=== PATIENT | female | born 1970 | race Caucasian/White ===

== ENCOUNTER 2017-04-09 16:07 | Outpatient (CLI) | payer BC | END 2017-04-09 16:08 | disposition home or self-care (01) | LOC: BICMAMMO 16:07 | PROVIDERS: ATTEND Family Medicine | DX: Z12.31 Encounter for screening mammogram for malignant neoplasm of breast (principal) | CPT/HCPCS: 77063; 77067 ==

== ENCOUNTER 2017-07-21 12:15 | Outpatient (CLI) | payer BC | END 2017-07-21 12:16 | disposition home or self-care (01) | LOC: BICRAD 12:15 | PROVIDERS: ATTEND Internal Medicine Rheumatology | DX: M45.0 Ankylosing spondylitis of multiple sites in spine (principal) | CPT/HCPCS: 71046 ==

== ENCOUNTER 2018-04-28 16:02 | Outpatient (CLI) | payer BC | END 2018-04-28 16:03 | disposition home or self-care (01) | LOC: BICMAMMO 16:02 | PROVIDERS: ATTEND Family Medicine | DX: Z12.31 Encounter for screening mammogram for malignant neoplasm of breast (principal); Z98.890 Other specified postprocedural states | CPT/HCPCS: 77063; 77067 ==

== ENCOUNTER 2018-04-28 16:21 | Outpatient (CLI) | payer BC ==
--- NOTE | 2018-04-28 17:21 | RAD ---
CHEST TWO VIEWS: HISTORY: Ankylosing spondylitis. COMPARISON: 01/08/2004 FINDINGS: The cardiac silhouette and pulmonary vasculature are unremarkable. The mediastinum is midline. No c onfluent air space consolidation, pneumothorax, or pleural fluid is apparent. No significant interst itial disease. IMPRESSION: No active cardiopulmonary abnormalities are demonstrated. POS: [facility]
== END 2018-04-28 16:22 | disposition home or self-care (01) ==
LOC: BICRAD 16:21
PROVIDERS: ATTEND Internal Medicine Rheumatology
DX: M45.0 Ankylosing spondylitis of multiple sites in spine (principal)
CPT/HCPCS: 71046

== ENCOUNTER 2018-07-08 10:21 | Outpatient (CLI) | payer BC ==
--- NOTE | 2018-07-08 11:13 | RAD ---
2 VIEWS THORACIC SPINE: Date: 07/08/18 HISTORY: Myelopathy, radiculopathy. FINDINGS: AP and lateral views of thoracic spine obtained. 2 views of thoracic spine demonstrate no evidence of thoracic spine fractures, subluxations, or bony lesions. IMPRESSION: Normal 2 views thoracic spine. POS: [facility]
--- NOTE | 2018-07-08 11:46 | RAD ---
FIVE VIEWS CERVICAL SPINE INCLUDING AP AND LATERAL AND FLEXION AND EXTENSION AND OPEN MOUTH ODONTOID VIEWS CERVICAL SPINE: HISTORY: Spondylosis cervical region. FINDINGS: Five views cervical spine demonstrate slight loss of the normal lordotic curvature of the cervical sp ine. There is minimal retrolisthesis of C5 on C6 with broad-based posterior osteophyte seen at this level. Subtle anterior osteophyte seen anterior to the C4 and C5 levels. There is some disk space h eight loss seen at the C5-6 level. No other acute fractures or bony lesions seen. No significant ev idence of prevertebral soft tissue swelling seen. POS: [facility]
--- NOTE | 2018-07-08 11:47 | RAD ---
FOUR VIEWS LUMBAR SPINE: HISTORY: Spondylosis of the lumbar region. FINDINGS: AP, lateral, flexion, and extension lateral views lumbar spine obtained. Images demonstrate mild S-shaped lumbar scoliosis. There is disk space height loss with vacuum disk changes seen at the L5-S1 level. Small anterior and posterior osteophytes also seen at this level. No evidence of maricruz- or retrolisthesis seen on flexion or extension views. POS: [facility]
== END 2018-07-08 10:22 | disposition home or self-care (01) ==
LOC: BICRAD 10:21
PROVIDERS: ATTEND Specialist
DX: M47.24 Other spondylosis with radiculopathy, thoracic region (principal); M47.22 Other spondylosis with radiculopathy, cervical region; M51.17 Intervertebral disc disorders with radiculopathy, lumbosacral region; M47.27 Other spondylosis with radiculopathy, lumbosacral region; G35 Multiple sclerosis; G50.0 Trigeminal neuralgia
CPT/HCPCS: 72050; 72070; 72110

== ENCOUNTER 2018-08-05 12:44 | Outpatient (CLI) | payer BC ==
[~2018-08-05 12:44] MED LIST: Gadobenate Dimeglumine 529 MG/1 ML (20ML VIAL) ONE
--- NOTE | 2018-08-05 17:03 | MRI ---
EXAM: BRAIN MRI WITH AND WITHOUT CONTRAST: 08/05/18 HISTORY: Trigeminal neuralgia, left side of face. COMPARISON: None. TECHNIQUE: Brain MRI is performed with and without intravenous gadolinium administration. Multisequential, multi planar imaging is performed. FINDINGS: No hemorrhage on the axial gradient echo sequence. No parenchymal mass, mass effect or midline shift. Brain volume, age appropriate. Cortical alaniz-white matter differentiation is preserved. No hydrocephalus. Central arterial flow voids are maintained. Absent restricted diffusion. Minimal T2 and FLAIR white matter hyperintensities predominantly subcortical and deep white matter in location. Distribution does not favor multiple sclerosis. Adequate aeration of the sinuses and mastoid air cells. Midline brain parenchymal structures are unremarkable. No pathologic enhancement of the brain parenchyma. IMPRESSION: 1. No pathologic enhancement of the brain parenchyma. 2. Absent restricted diffusion. No acute infarct. 3. No significant T2 or FLAIR white matter hyperintensities to suggest multiple sclerosis. If th ere is still concern, correlation with CSF acquisition for further analysis is recommended. POS: [facility]
--- NOTE | 2018-08-05 17:16 | MRI ---
MRI CERVICAL SPINE WITH AND WITHOUT CONTRAST: 08/05/18 HISTORY: Radiculopathy. Evaluate for multiple sclerosis. COMPARISON: None. FINDINGS: Appropriate T1 marrow signal intensity of the thoracic vertebrae. Thoracic spine vertebral body heigh t is maintained. No fracture. Intrinsic T1 and T2 hyperintensity at the left aspect of T1, compatible with a small area of fatty marrow. Visualized brain parenchyma, cervicomedullary junction, cervical cord, and the upper thoracic cord rossi ve a normal size and signal intensity. No cord malacia. No cord expansion. No T2 hyperintensities in the cord. No abnormal enhancement. C2-C3: No significant central canal stenosis or neural foraminal narrowing. C3-C4: No significant central canal stenosis. Mild right foraminal narrowing due to uncovertebral hyp ertrophy. Left foramen is patent. C4-C5: No significant central canal stenosis or foraminal narrowing. C5-C6: Broad based disc bulge abuts the thecal sac. There is a small left paracentral component. Mild central canal stenosis. Neural foramina patent. C6-C7: No significant central canal stenosis or foraminal narrowing. T7-T1: No significant central canal stenosis or foraminal narrowing. IMPRESSION: 1. No significant central canal stenosis or foraminal narrowing. Mild left foraminal narrowing a t C3-C4. There is a disc bulge at C5-C6 without significant stenosis. 2. Appropriate size and signal intensity of the spinal cord. No MR evidence of a demyelinating plaque in the visualized spinal cord. POS: [facility]
--- NOTE | 2018-08-05 17:21 | MRI ---
MRI THORACIC SPINE WITH AND WITHOUT CONTRAST: 08/05/18 HISTORY: Radiculopathy of the thoracic region. Multiple sclerosis. COMPARISON: None. FINDINGS: Appropriate T1 marrow signal intensity of the thoracic vertebrae. Thoracic spine vertebral body heigh t is maintained. No fracture. Small focus of fatty marrow is noted along the left aspect of the T1 ve rtebral body. No significant STIR hyperintensity to suggest vertebral body edema or ligamentous injur y. Dependent atelectatic changes in the lung parenchyma. The visualized mediastinum and solid organs are grossly unremarkable. At T4-T5, there is a generalized disc bulge that abuts the thecal sac and flattens the overall diamet er of the central spinal canal. There is mild flattening of the thoracic cord. Mild central canal keyshawn nosis. T7-T8 demonstrates small left and right paracentral disc bulges with mild central canal stenosis. Conus medullaris terminates at approximately the mid T12 level. The thoracic cord has a normal size and signal intensity. No cord expansion. No T2 hyperintensity of the cord. No abnormal enhancement. The neural foramina are patent throughout the thoracic spine. IMPRESSION: 1. Unremarkable pre and postcontrast thoracic spine MRI. The greatest degree of degenerative kari nges at T4-T5 where there is mild central canal stenosis. 2. Normal cord signal intensity of the visualized spinal cord. POS: [facility]
--- NOTE | 2018-08-05 17:27 | MRI ---
MRI LUMBAR SPINE WITH AND WITHOUT CONTRAST: 08/05/18 HISTORY: Intervertebral disc disorder with radiculopathy. Multiple sclerosis. COMPARISON: None. FINDINGS: Appropriate T1 marrow signal intensity of the lumbar vertebrae. Lumbar spine vertebral body height is maintained. No fracture. No significant STIR hyperintensity to suggest vertebral body edema or ligam entous injury. On the sagittal T2 weighted images, there is a T2 hyperintensity in the midline of the pelvis, incomp letely evaluated. Appropriate signal intensity of the paraspinal muscles and visualized solid organs. Conus medullaris terminates at the mid aspect of T12. On the postcontrast images, there is no abnormal enhancement with regards to the vertebral bodies, ca uda equine, or conus medullaris. T12-L1: No significant central canal stenosis or foraminal narrowing. L1-L2: No significant central canal stenosis or foraminal narrowing. L2-L3: No significant central canal stenosis or foraminal narrowing. L3-L4: No significant central canal stenosis or foraminal narrowing. L4-L5: Central disc protrusion. Mild central canal stenosis. Bilaterally, neural foramina are patent. L5-S1: Desiccation with severe loss of disc space height. There is a generalized disc bulge without significant central canal stenosis. Mild bilateral neural foraminal narrowing. IMPRESSION: 1. Degenerative changes of the lumbar spine as detailed above. No significant central canal sten osis or significant neural foraminal narrowing. 2. Consider further evaluation with a T2 hyperintensity probably in the left hemipelvis, incompl etely evaluated. Code T POS: [facility]
== END 2018-08-05 12:45 | disposition home or self-care (01) ==
LOC: MRI 12:44
PROVIDERS: ATTEND Specialist
DX: G35 Multiple sclerosis (principal); M51.17 Intervertebral disc disorders with radiculopathy, lumbosacral region; M54.14 Radiculopathy, thoracic region; G50.0 Trigeminal neuralgia; M47.816 Spondylosis without myelopathy or radiculopathy, lumbar region; M47.24 Other spondylosis with radiculopathy, thoracic region; M48.04 Spinal stenosis, thoracic region; M50.122 Cervical disc disorder at C5-C6 level with radiculopathy
CPT/HCPCS: 70553; 72156; 72157; 72158; A9577

== ENCOUNTER 2018-08-24 13:03 | Outpatient (CLI) | payer BC ==
--- NOTE | 2018-08-24 17:08 | MRI ---
MRI OF PELVIS WITH AND WITHOUT CONTRAST: 08/24/18 HISTORY: R19.00 - pelvic mass. COMPARISON: Lumbar spine MRI 08/05/18. FINDINGS: In the left adnexa, is a T2 hyperintense mass measuring up to 3 cm without any internal enhancement. Just craniad to this is a smaller T2 hyperintense nonenhancing mass measuring up to 1.2 cm. In the ri ght adnexa is a nonenhancing T2 hyperintense nonenhancing 1 cm mass. Trace free fluid in the pelvis. No dilated loops of large or small bowel in mid lower pelvis. Marrow signal of the pelvis is normal. The iliac vessel contour is normal. No marrow infiltrative process. Bilateral acetabular osteophyte formation. Moderate degenerative dise ase of the pubic symphysis. Prior hysterectomy. No hydronephrosis. There is an incompletely evaluated T2 hyperintense focus within the right lobe of the liver. Aortic contour is nonaneurysmal. Limited e valuation of the spleen is unremarkable. There is another T2 hyperintense focus within the right lobe of the liver, hepatic possibly segment I Vb. IMPRESSION: 1. Bilateral simple adnexal cyst without evidence of malignancy. 2. Incidental incompletely evaluated T2 hyperintense foci of the liver. There is a prior MRI of the abdomen of 2012 which described these findings. POS: [facility]
== END 2018-08-24 13:04 | disposition home or self-care (01) ==
LOC: SCSMRI 13:03
PROVIDERS: ATTEND Specialist
DX: R19.00 Intra-abdominal and pelvic swelling, mass and lump, unspecified site (principal); N83.8 Other noninflammatory disorders of ovary, fallopian tube and broad ligament
CPT/HCPCS: 72197

== ENCOUNTER 2019-04-29 15:47 | Outpatient (CLI) | payer BC ==
--- NOTE | 2019-04-29 16:18 | MMO ---
Bilateral MAMMO Bilat Screen [facility]. CLINICAL HISTORY: Patient is 48 years old and is seen for screening. The patient has no family history of breast cancer. The patient has no personal history of cancer. The patient has a history of right Cyst Aspiration in September, - benign and right Excisional Biopsy in September, - benign. VIEWS: The views performed were: bilateral craniocaudal with tomosynthesis and bilateral mediolateral oblique with tomosynthesis. FILMS COMPARED: The present examination has been compared to prior imaging studies performed at [facility] on 03/14/2015, 03/20/2016, 04/09/2017 and 04/28/2018. This study has been interpreted with the assistance of computer-aided detection. MAMMOGRAM FINDINGS: The breasts are heterogeneously dense, which could obscure a lesion on mammography. There is a biopsy clip seen in the right breast. There are no suspicious masses, suspicious calcifications, or new areas of architectural distortion. IMPRESSION: THERE IS NO MAMMOGRAPHIC EVIDENCE OF MALIGNANCY. A ROUTINE FOLLOW-UP MAMMOGRAM IN 1 YEAR IS RECOMMENDED. THE RESULTS OF THIS EXAM WERE SENT TO THE PATIENT. ACR BI-RADS Category 2 - Benign finding MAMMOGRAPHY NOTE: 1. A negative mammogram report should not delay a biopsy if a dominant of clinically suspicious mass is present. 2. Approximately 10% to 15% of breast cancers are not detected by mammography. 3. Adenosis and dense breasts may obscure an underlying neoplasm. Reported by: CARISSA PEARSON MD Electonically Signed: [id number]
== END 2019-04-29 15:48 | disposition home or self-care (01) ==
LOC: BICMAMMO 15:47
PROVIDERS: ATTEND Family Medicine
DX: Z12.31 Encounter for screening mammogram for malignant neoplasm of breast (principal); Z91.89 Other specified personal risk factors, not elsewhere classified
CPT/HCPCS: 77063; 77067

== ENCOUNTER 2020-06-19 15:20 | Outpatient (CLI) | payer BC | END 2020-06-19 15:21 | disposition home or self-care (01) | LOC: BICMAMMO 15:20 | PROVIDERS: ATTEND Family Medicine | DX: Z12.31 Encounter for screening mammogram for malignant neoplasm of breast (principal); Z91.89 Other specified personal risk factors, not elsewhere classified | CPT/HCPCS: 77063; 77067 ==

== ENCOUNTER 2023-09-30 14:01 | Outpatient (CLI) | payer BC | END 2023-09-30 14:02 | disposition home or self-care (01) | LOC: BICRAD 14:01 | PROVIDERS: ATTEND Internal Medicine Rheumatology | DX: M15.9 Polyosteoarthritis, unspecified (principal) | CPT/HCPCS: 73565 ==

== ENCOUNTER 2023-11-16 14:40 | Outpatient (CLI) | payer BC | END 2023-11-16 14:41 | disposition home or self-care (01) | LOC: BICMAMMO 14:40 | PROVIDERS: ATTEND Internal Medicine Rheumatology | DX: M81.0 Age-related osteoporosis without current pathological fracture (principal); M85.89 Other specified disorders of bone density and structure, multiple sites | CPT/HCPCS: 77080 ==